=== PATIENT | male | born 1945 | race Caucasian/White ===

== ENCOUNTER → 2023-09-24 06:19 | Day surgery (SDC) | payer OTHER, SELFPAY ==
[2023-09-24 07:42] LABS: Glucose - Point of Care 168 mg/dl (70-99)
== END ==
LOC: GI 06:19
PROVIDERS: ATTENDING PHYSICIAN Internal Medicine Gastroenterology; FAMILY PHYSICIAN Internal Medicine
DX: Z12.11 Encounter for screening for malignant neoplasm of colon (principal); K57.30 Diverticulosis of large intestine without perforation or abscess without bleeding; K64.8 Other hemorrhoids; Z86.010 Personal history of colon polyps
CPT/HCPCS: G0105; 82962

== ENCOUNTER → 2024-01-13 08:40 | Outpatient (REF) | payer OTHER, SELFPAY | LOC: RAD 08:40 | PROVIDERS: ATTENDING PHYSICIAN Nurse Practitioner Adult Health; FAMILY PHYSICIAN Internal Medicine | DX: M79.605 Pain in left leg (principal) | CPT/HCPCS: 93971 ==

== ENCOUNTER → 2024-07-28 13:50 | Outpatient (REF) | payer OTHER, SELFPAY | LOC: HWRAD 13:50 | PROVIDERS: ATTENDING PHYSICIAN Internal Medicine Nephrology; FAMILY PHYSICIAN Internal Medicine | DX: N18.31 Chronic kidney disease, stage 3a (principal) | CPT/HCPCS: 76770 ==

== ENCOUNTER → 2024-08-13 09:15 | Outpatient (REF) | payer OTHER, SELFPAY ==
[2024-08-13 10:25] LABS: % Basophils 0.6 % (0-2); % Immature Granulocytes 0.5 % (0-0.5); % Lymphocytes 29.6 % (20.5-51.1); % Monocytes 7.5 % (1.7-9.3); % Neutrophils 56.8 % (42.2-75.2); Absolute Basophils 0.1 10^3/uL (0-0.2); Absolute Eosinophils 0.4 10^3/uL (0-0.7); Absolute Lymphocytes 2.4 10^3/uL (1.2-3.4); Absolute Monocytes 0.6 10^3/uL (0.1-0.6); Absolute Neutrophils 4.7 10^3/uL (1.4-6.5); Hematocrit 40.6 % (39.0-52.0); Hemoglobin 13.4 g/dL (13.0-18.0); Mean Corpuscular Hgb 30.7 pg (27.0-31.0); Mean Corpuscular Volume 93.1 fL (80.0-94.0); Mean Platelet Volume 10.6 fL (7.4-10.4); Nucleated Red Blood Cells % 0 % (-); Platelet Count 219 10^3/uL (130-400); Red Blood Cell Count 4.36 10^6/uL (4.70-6.10); Red Cell Dist. Width 13.6 % (11.5-14.5); White Blood Cell Count 8.2 10^3/uL (4.8-10.8)
[2024-08-13 10:54] LABS: Protein/creatinine Ratio 0.5; Urine Protein 47 mg/dl
[2024-08-13 10:58] LABS: ALT (SGPT) 17 U/L (0-50); AST (SGOT) 22 U/L (17-59); Albumin 4.6 g/dl (3.5-5.0); Alkaline Phosphatase 60 U/L (38-126); Blood Urea Nitrogen 26 mg/dl (9-20); Calcium 9.3 mg/dl (8.4-10.2); Carbon Dioxide 26 mmol/L (22-30); Chloride 101 mmol/L (98-107); Direct Bilirubin 0.2 mg/dl (0.0-0.4); Glucose 202 mg/dl (70-99); HDL Cholesterol 42 mg/dl; Iron 88 ug/dl (49-181); LDL Cholesterol, Calculated 96 mg/dl; Phosphorus 2.7 mg/dl (2.5-4.5); Potassium 4.5 mmol/L (3.5-5.1); Sodium 137 mmol/L (135-145); Total Bilirubin 1.1 mg/dl (0.2-1.3); Total Cholesterol 169 mg/dl (50-199); Total Protein 7.2 g/dl (6.3-8.2); Triglyceride 158 mg/dl (10-149); Very Low Density Lipoprotein 31 mg/dl (0-30); eGFR > 60.00
[2024-08-13 10:59] LABS: Glucose 200 mg/dl (70-99)
[2024-08-13 11:07] LABS: Percent Saturation 27 % (20-50); Total Iron Binding Capacity 323 ug/dl (261-462)
[2024-08-13 11:40] LABS: Glycohemoglobin (HgbA1c) 8.8 % (4.0-5.6)
[2024-08-13 11:45] LABS: Vitamin B12 349 pg/ml (239-931)
[2024-08-13 12:00] LABS: Folate > 20.0 ng/ml (2.76-20)
[2024-08-14 08:49] LABS: Intact PTH 116.5 pg/ml (13.6-85.8)
[2024-08-15 16:26] LABS: 24 Hour Urine Total Volume Random mL; Urine Collection Length Random hr; Urine Free Lambda Light Chains 22.42 mg/L (0.00-3.79)
== END ==
LOC: REG 09:15
PROVIDERS: ATTENDING PHYSICIAN Internal Medicine Nephrology; FAMILY PHYSICIAN Internal Medicine
DX: N18.31 Chronic kidney disease, stage 3a (principal); D64.9 Anemia, unspecified; E11.69 Type 2 diabetes mellitus with other specified complication; I10 Essential (primary) hypertension; E78.5 Hyperlipidemia, unspecified
CPT/HCPCS: 36415; 80053; 80061; 82248; 82570; 82607; 82746; 82784; 82947; 83036; 83521; 83540; 83550; 83970; 84100; 84155; 84156; 84165; 85025; 86334; 86335

== ENCOUNTER → 2024-12-21 07:20 | Outpatient (REF) | payer OTHER, SELFPAY ==
[2024-12-21 08:38] LABS: ALT (SGPT) 18 U/L (0-50); AST (SGOT) 24 U/L (17-59); Albumin 3.6 g/dl (3.5-5.0); Alkaline Phosphatase 51 U/L (38-126); Glucose 156 mg/dl (70-99); HDL Cholesterol 35 mg/dl; LDL Cholesterol, Calculated 78 mg/dl; Total Protein 6.0 g/dl (6.3-8.2); Very Low Density Lipoprotein 28 mg/dl (0-30)
[2024-12-21 09:35] LABS: Glycohemoglobin (HgbA1c) 6.3 % (4.0-5.6)
== END ==
LOC: REG 07:20
PROVIDERS: ATTENDING PHYSICIAN Internal Medicine
DX: E11.29 Type 2 diabetes mellitus with other diabetic kidney complication (principal); I10 Essential (primary) hypertension; E78.5 Hyperlipidemia, unspecified
CPT/HCPCS: 36415; 80061; 80076; 82947; 83036